=== PATIENT | female | born 1965 | race Caucasian/White ===

== ENCOUNTER 2016-12-19 18:19 | Emergency (ER) | payer OTHER ==
--- NOTE | ~2016-12-19 | CT52 ---
[facility] A Service of [facility] RADIOLOGY TEXT RESULTS PATIENT: ASHLEY LAU LOCATION: SED : 67 UNIT #: [id number] AGE: [address]: Venkatesh Wilson MD SEX: F ORDER DR: [id number] [place] [id number] E MR#: [id number] Acc #: [id number] NAME: ASHLEY LAU : 1965 SEX: F STUDY DATE/TIME: 12/19/2016 19:43 UNIT: SED ROOM: STUDY DESCRIPTION: CT Cervical Spine Wo Cont Attending Physician: Venkatesh Wilson M.D. Ordering Physician: Venkatesh Wilson M.D. Primary Care Physician: No Primary Care Physician MEDICAL IMAGING REPORT This report is preliminary unless electronic signature is present. EXAM CT cervical spine without contrast 12/19/2016 HISTORY A 51-year-old female with posterior neck pain status post fall 2 days ago. COMPARISON STUDIES None. TECHNIQUE Helical scan performed through the cervical spine without IV contrast. Coronal and sagittal reformatted images. This CT exam was performed with one or more of the following radiation dose reduction techniques: automatic exposure control, adjustment of mA and/or kV according to patient size, and iterative reconstruction. FINDINGS No evidence of acute fracture or subluxation. Vertebral body heights and alignment are normally maintained. Prevertebral soft tissues are normal. Atlantoaxial relationship is normal. Cervicothoracic junction is unremarkable. There are moderate degenerative disc changes at C3-C4, C4-C5, C5-C6, and C6-C7. This produces mild central canal stenosis at multiple levels. There is mild multilevel facet degeneration. Paravertebral soft tissues are unremarkable. Visualized lung apices are unremarkable. IMPRESSION 1. No acute cervical spine injury. 2. Majh-xv-muswiiqi multilevel degenerative changes producing mild central canal stenosis at multiple levels. If clinical symptoms persist, consider further characterization with nonemergent cervical STS. [facility] A Service of [facility] RADIOLOGY TEXT RESULTS PATIENT: ASHLEY LAU LOCATION: SED : 67 UNIT #: [id number] AGE: [address]: Venkatesh Wilson MD SEX: F ORDER DR: spine MRI. Dictated by... Irving Mcwilliams M.D. THIS IS AN ELECTRONICALLY VERIFIED REPORT Irving Mcwilliams M.D. at 12/20/2016 9:07 AM JOE/jose f TD: 12/19/2016 23:48 JOB #: [id number] MEDICAL IMAGING REPORT Page 1 of 1
--- NOTE | ~2016-12-19 | CR230 ---
[facility] A Service of [facility] & [facility] RADIOLOGY TEXT RESULTS PATIENT: ASHLEY LAU LOCATION: SED : 67 UNIT #: [id number] AGE: [address]: Venkatesh Wilson MD SEX: F ORDER DR: [id number] [place] [id number] E MR#: [id number] Acc #: [id number] NAME: ASHLEY LAU : 1965 SEX: F STUDY DATE/TIME: 12/19/2016 19:43 UNIT: SED ROOM: STUDY DESCRIPTION: CR Shoulder Min 2 View Rt Attending Physician: Venkatesh Wilson M.D. Ordering Physician: Venkatesh Wilson M.D. Primary Care Physician: No Primary Care Physician MEDICAL IMAGING REPORT This report is preliminary unless electronic signature is present. EXAM Right shoulder 12/19/2016 HISTORY Right shoulder pain status post fall 2 days ago. COMPARISON None. FINDINGS Three views of the right shoulder demonstrate no acute fracture or dislocation. Mild degenerative changes acromioclavicular joint. Soft tissues are unremarkable. IMPRESSION No acute fracture or dislocation. Some mild acromioclavicular joint arthrosis Dictated by... Irving Mcwilliams M.D. THIS IS AN ELECTRONICALLY VERIFIED REPORT Irving Mcwilliams M.D. at 12/20/2016 9:07 AM JOE/jose f TD: 12/19/2016 23:46 JOB #: [id number] MEDICAL IMAGING REPORT Page 1 of 1
--- NOTE | ~2016-12-19 | CR157 ---
[facility]. [facility] A Service of [facility] & [facility] RADIOLOGY TEXT RESULTS PATIENT: ASHLEY LAU LOCATION: SED : 67 UNIT #: [id number] AGE: [address]: Venkatesh Wilson MD SEX: F ORDER DR: [id number] [place] [id number] E MR#: [id number] Acc #: [id number] NAME: ASHLEY LAU : 1965 SEX: F STUDY DATE/TIME: 12/19/2016 19:43 UNIT: SED ROOM: STUDY DESCRIPTION: CR Humerus Min 2 View Rt Attending Physician: Venkatesh Wilson M.D. Ordering Physician: Venkatesh Wilson M.D. Primary Care Physician: No Primary Care Physician MEDICAL IMAGING REPORT This report is preliminary unless electronic signature is present. EXAM Right humerus 12/19/2016 HISTORY A 51-year-old female with right arm pain status post fall 2 days ago. COMPARISON STUDIES None. FINDINGS 2 views of the right humerus demonstrate no acute fracture or dislocation. Soft tissues are unremarkable. IMPRESSION Unremarkable right humerus Dictated by... Irving Mcwilliams M.D. THIS IS AN ELECTRONICALLY VERIFIED REPORT Irving Mcwilliams M.D. at 12/20/2016 9:07 AM JOE/jose f TD: 12/19/2016 23:45 JOB #: [id number] MEDICAL IMAGING REPORT Page 1 of 1
[~2016-12-19 18:19] MED LIST: ALBUTEROL17 GM INH; BROMFED DM COU118 ML PO; CELEXA10 MG PO; FLEXERIL10 MG PO; SYNTHROID0.15 MG PO; TYLENOL #3 PO
[2016-12-19] MEDS ORDERED: B/P MED (18:42)
[2016-12-19] MEDS ORDERED: IBUPROFEN (18:43)
== END 2016-12-19 20:43 | disposition home or self-care (01) ==
LOC: SED 18:19
DX: S46.911A Strain of unspecified muscle, fascia and tendon at shoulder and upper arm level, right arm, initial encounter (principal); M54.12 Radiculopathy, cervical region; F41.9 Anxiety disorder, unspecified; F17.200 Nicotine dependence, unspecified, uncomplicated; W01.0XXA Fall on same level from slipping, tripping and stumbling without subsequent striking against object, initial encounter; Y92.89 Other specified places as the place of occurrence of the external cause
CPT/HCPCS: 72125; 73030; 73060; 99284